=== PATIENT | female | born 1985 | race Caucasian/White ===

== ENCOUNTER → 2020-04-01 | Outpatient (CLI) | payer BC ==
[~2020-04-01] MED LIST: AMOX250S5 PO; BIRTH CONTROL; CETI10TA21 PO; DEXAINTSOL PO; HYDR15SO8 PO; HYOS0.1283 SL; METFOR850T; METFOR850T PO; NORE-106 PO; NORE1TAB40; ONDA8TAB9 PO; ONDAN4ODT PO; TETRACAINESUCKERS MT
--- NOTE | 2020-04-01 16:08 | Diagnostic Imaging Report ---
PROCEDURE: CT Sinus w/o Contrast. TECHNIQUE: Multiple contiguous axial images were obtained through the sinuses without the use of intravenous contrast. Coronal reformations were performed. All CT scans use one or more of the following dose optimizing techniques: automated exposure control, MA and/or KvP adjustment based on a patient size and exam type, or iterative reconstruction. INDICATION: Facial trauma 9 days ago. Trauma to the nose and right maxilla. Headache. COMPARISON: None. FINDINGS: Mucosal thickening is noted in the bilateral maxillary sinuses and left ethmoid sinuses. A mucus retention cyst is seen in the right maxillary sinus. A small fluid level is seen in the left maxillary sinus. There is narrowing of the left ostiomeatal complex secondary to retained secretions. The sphenoethmoid and frontoethmoid recesses are patent and unremarkable. The mastoid air cells are well pneumatized. The bony nasal septum is deviated to the left. No acute facial fractures. The globes and orbits are symmetric and unremarkable. Included intracranial contents show no acute abnormalities. The included soft tissues of the head are normal in appearance. IMPRESSION: 1. Fluid level in the left maxillary sinus with narrowing of the left ostiomeatal complex and retained secretions in the bilateral maxillary sinuses and left ethmoid sinuses. These findings are suggestive of acute sinusitis with the greatest involvement in the left maxillary sinus. 2. No findings suggest acute facial fracture. 3. Leftward deviation of the bony nasal septum. Dictated by: Dictated on workstation # [id number]
== END ==
LOC: RAD 15:05
PROVIDERS: ATTEND Otolaryngology Otolaryngology/Facial Plastic Surgery
DX: J34.2 Deviated nasal septum (principal); X58.XXXA Exposure to other specified factors, initial encounter
CPT/HCPCS: 70486

== ENCOUNTER → 2023-08-03 | Outpatient (CLI) | payer BC ==
[~2023-08-03] MED LIST changes: -CETI10TA21 PO; +CETI10TA49 PO; +HYDR15SO11 PO; -HYDR15SO8 PO
[2023-08-03 08:17] LABS: BASOPHILS # (AUTO) 0.1 10^3/uL (0.0-0.1); BASOPHILS % (AUTO) 1 % (0-10); EOSINOPHILS # (AUTO) 0.5 10^3/uL (0.0-0.3); EOSINOPHILS % (AUTO) 6 % (0-10); HEMATOCRIT 45 % (35-52); HEMOGLOBIN 14.9 g/dL (11.5-16.0); LYMPHOCYTES # (AUTO) 2.2 10^3/uL (1.0-4.0); LYMPHOCYTES % (AUTO) 29 % (12-44); MEAN CORPUSCULAR HEMOGLOBIN 31 pg (25-34); MEAN CORPUSCULAR HGB CONC 33 g/dL (32-36); MEAN CORPUSCULAR VOLUME 93 fL (80-99); MEAN PLATELET VOLUME 9.5 fL (9.0-12.2); MONOCYTES # (AUTO) 0.6 10^3/uL (0.0-1.0); MONOCYTES % (AUTO) 8 % (0-12); NEUTROPHILS % (AUTO) 55 % (42-75); PLATELET COUNT 233 10^3/uL (130-400); WHITE BLOOD COUNT 7.4 10^3/uL (4.3-11.0)
[2023-08-03 08:36] LABS: ALBUMIN 4.4 GM/DL (3.2-4.5); POTASSIUM 4.5 MMOL/L (3.6-5.0)
[2023-08-03 08:37] LABS: CALCIUM 10.3 MG/DL (8.5-10.1)
[2023-08-03 08:38] LABS: TOTAL PROTEIN 7.4 GM/DL (6.4-8.2)
[2023-08-03 08:40] LABS: BILIRUBIN,TOTAL 0.5 MG/DL (0.1-1.0)
[2023-08-03 08:42] LABS: CREATININE SERUM 0.92 MG/DL (0.60-1.30)
[2023-08-03 09:07] LABS: FREE T4 (FREE THYROXINE) 1.01 NG/DL (0.70-1.48)
== END ==
LOC: LAB 07:42
PROVIDERS: ATTEND Family Medicine
DX: Z00.00 Encounter for general adult medical examination without abnormal findings (principal)
CPT/HCPCS: 36415; 80053; 80061; 83036; 84439; 84443; 85025

== ENCOUNTER → 2023-08-15 | Outpatient (CLI) | payer BC ==
[~2023-08-15] MED LIST changes: +RT-ALBUTEROL SULF 2.5 MG/3 ML PRE-MIX VIAL INH ONE
== END ==
LOC: RT 10:45
PROVIDERS: ATTEND Family Medicine
DX: J45.990 Exercise induced bronchospasm (principal)
CPT/HCPCS: 94060; 94726; 94729